=== PATIENT | female | born 1980 | race Asian ===

== ENCOUNTER 2017-06-22 01:48 | Emergency (ER) | payer OTHER ==
[~2017-06-22] VITALS: Ht 152.4 cm; Wt 78.0 kg
== END 2017-06-22 03:03 | disposition home or self-care (01) ==
LOC: ED 01:48
DX: G51.0 Bell's palsy (principal)
CPT/HCPCS: 99283

== ENCOUNTER 2018-01-31 16:05 | Outpatient (CLI) | payer OTHER | END 2018-01-31 23:29 | disposition home or self-care (01) | LOC: RESP 16:05 | DX: G56.02 Carpal tunnel syndrome, left upper limb (principal); G56.22 Lesion of ulnar nerve, left upper limb | CPT/HCPCS: 95885; 95911 ==

== ENCOUNTER 2018-03-22 09:12 | Outpatient (CLI) | payer OTHER | END 2018-03-22 19:05 | disposition home or self-care (01) | LOC: RESP 09:12 | DX: I10 Essential (primary) hypertension (principal) | CPT/HCPCS: 93005 ==

== ENCOUNTER 2022-02-21 14:00 | Outpatient (CLI) | payer OTHER | END 2022-02-21 19:09 | disposition home or self-care (01) | LOC: MAMMO 14:00 | PROVIDERS: ATTEND Family Medicine | DX: Z12.31 Encounter for screening mammogram for malignant neoplasm of breast (principal); Z80.3 Family history of malignant neoplasm of breast ==